=== PATIENT | male | born 1970 | race Caucasian/White ===

== ENCOUNTER 2022-06-04 15:12 | Outpatient (CLI) | payer BC, SELFPAY ==
--- NOTE | ~2022-06-04 | XR_ITS ---
XR hand RT min 3V DATE: 06/04/2022 15:38 INDICATION: Laceration TECHNIQUE: 3 views of right hand COMPARISON: None FINDINGS: There is mild osteoarthritis at the first through fourth metacarpophalangeal joints. No fracture or dislocation, periosteal reaction or bone destruction is detected. No erosive change or chondrocalcinosis. IMPRESSION: Mild osteoarthritis Reviewed, dictated and finalized at location B. NESS INFO CONSULTANT IMPRESSION: Mild osteoarthritis
--- NOTE | ~2022-06-04 | XR_ITS ---
EXAMINATION: XR knee RT min 4V DATE: 06/04/2022 15:38 INDICATION: Right knee pain. TECHNIQUE: 4 views of right knee were obtained. COMPARISON: None. FINDINGS: Bone alignment is normal. No fracture. There is mild osteoarthritis of medial and patellofe moral compartments characterized by tiny osteophytes. No joint space narrowing. No knee joint effusio n. IMPRESSION: 1. Mild right knee osteoarthritis. Reviewed, dictated and finalized at location A. E SETTER
== END 2022-06-04 15:13 | disposition home or self-care (01) ==
PROVIDERS: PCP Family Medicine; Visit Provider Family Medicine
DX: M79.643 Pain in unspecified hand (principal); R20.0 Anesthesia of skin; R20.2 Paresthesia of skin; M25.561 Pain in right knee; S61.419A Laceration without foreign body of unspecified hand, initial encounter; M17.11 Unilateral primary osteoarthritis, right knee; M19.041 Primary osteoarthritis, right hand
CPT/HCPCS: 73130; 73564

== ENCOUNTER 2023-07-14 11:57 | Emergency (ER) | payer BC, SELFPAY ==
[2023-07-14 12:03] VITALS: BP 156/99; PULSE 81; RESP 18; TEMP 37.1; O2SAT 98
--- NOTE | 2023-07-14 12:03 | ED.SKABFB ---
HPI - Skin/Abscess/Foreign Bdy General Chief complaint: Skin/Abscess/Foreign Body Stated complaint: rash on left leg/cough Time Seen by Provider: 07/14/23 11:58 Source: patient Mode of arrival: ambulatory Limitations: no limitations History of Present Illness HPI narrative: Patient is a 52-year-old male who presents with wound to left parrish. Patient states it started as a small reddened area and has grown in size. Patient has been putting steroid cream on it. Denies any itching or drainage. Patient also has cough for 2 weeks. Patient has been using [id number] DayQuil, NyQuil, Robitussin with no relief. Denies any fever, chills, nausea, vomiting, diarrhea. Related Data Allergies Allergy/AdvReac Type Severity Reaction Status Date / Time No Known Allergies Allergy Unverified 06/01/23 16:10 Review of Systems Review of Systems: All systems reviewed & are unremarkable except as noted in HPI and below Constitutional: Constitutional: Denies body ache(s), Denies chills, Denies fatigue, Denies fever(s), Denies headache(s), Denies malaise and Denies weakness Eyes: Eyes: Denies blurry vision, Denies itchy eyes and Denies loss of vision ENT: Denies otalgia, Denies headache(s), Reports nasal congestion, Denies sinus pain and Denies sore throat Cardiovascular: Cardiovascular: Denies chest pain, Denies irregular heart rhythm and Denies dyspnea Respiratory: Respiratory: Reports cough and Denies dyspnea Gastrointestinal: Gastrointestinal: Denies abdominal pain, Denies diarrhea, Denies nausea and Denies vomiting Musculoskeletal: Musculoskeletal: Denies back pain, Denies myalgias and Denies arthralgias Integumentary/Breasts: Skin/Breast: Denies pruritus, Reports lesions and Denies rash Neurologic: Denies headache(s), Denies loss of vision and Denies weakness Psychiatric: Psychiatric: Reports no additional psychiatric complaints Endocrine: Endocrine: Denies fatigue Allergic/Immunologic: Allergic/Immunologic: Denies itchy eyes PMFSH Family History Family History Father Cancer Diabetes mellitus Hypertension Heart disease Mother Cerebrovascular accident Grandparent Cancer Diabetes mellitus Hypertension Cerebrovascular accident Social History Social History Smoking status: Never smoker Alcohol intake: never Substance use: never Lack of Transportation: YES Lack of Food: Never True Concerned About Future Housing: No Difficulty Paying Gas/Electric Bills: No Difficulty Paying for Meds: No Currently Unemployed: No Education: Associate Degree Difficulty w/ Childcare or Family Care: No Living arrangements: with family Occupation/Education: occupation Additional occupation/education comments: [employer] Gender identity (if verbalized by the patient): Male Agree to blood products: Yes Comments At time of signature, agree with nursing past medical, surgical, social and family history. There is no relevant family history pertinent to the presenting complaint. Exam Const: General: cooperative, healthy appearing, comfortable, no acute distress and well nourished Nutritional Appearance: well nourished Orientation/consciousness: patient oriented x3 Limitations: no limitations HENMT: Head: normal to inspection, normocephalic and atraumatic Ears: hearing grossly normal bilaterally, external ears normal, TM's normal bilaterally, EAC's normal and no periauricular adenopathy Face/Nose/Sinus: Normal external nose present, Abnormal mucous membranes and turbinates present erythematous bilateral and diffuse, normal facial exam, sinuses nontender and face symmetric Face and sinus: normal facial exam, sinuses nontender and face symmetric Mouth: Yes Normal oral and palatal mucosa present, Yes lip normal, Yes tongue normal, Yes Normal salivary glands and ducts present, Yes oroph
== END 2023-07-14 12:37 | disposition home or self-care (01) ==
PROVIDERS: Emergency Provider Nurse Practitioner Family; PCP Family Medicine
DX: J06.9 Acute upper respiratory infection, unspecified (principal); B36.9 Superficial mycosis, unspecified
CPT/HCPCS: 99213; G0463